=== PATIENT | female | born 1995 ===

== ENCOUNTER 2021-12-17 08:00 | Inpatient (IN) | payer BC ==
[~2021-12-17] VITALS: Ht 170.2 cm; Wt 108.6 kg
[2021-12-18] VITALS (16 sets, daily range): BP systolic 92–132; BP diastolic 53–84; PULSE 59–105; TEMP 98–99.1
[2021-12-18 06:11] LABS: BASO % 0.4 % (0.0-2.0); EOS # 0.1 K/mm3 (0.0-0.7); GRAN # 7.4 K/mm3 (1.4-6.5); GRAN % 71.2 % (42.2-75.2); HEMATOCRIT 39.3 % (37.0-47.0); HEMOGLOBIN 13.5 g/dl (12.5-16.0); LYMPH # 1.8 K/mm3 (1.2-3.4); LYMPH % 17.1 % (20.0-51.0); MEAN CELL VOLUME 87 fl (80.0-100.0); MEAN CORPUSCULAR HEMOGLOBIN 30 pg (27-31); MEAN CORPUSCULAR HGB CONC 34 g/dl (33.0-37.0); MEAN PLATELET VOLUME 12.2 fl (7.4-10.4); MONO # 0.9 K/mm3 (0.1-0.6); MONO % 8.9 % (1.7-9.3); PLATELET COUNT 206 K/mm3 (130-400); RED BLOOD COUNT 4.51 M/mm3 (4.10-5.30); REDCELL DISTRIBUTION WIDTH-CV 13.4 % (11.5-14.5)
--- NOTE | 2021-12-18 06:15 | NUR ---
This RN assumes care of patient. Plan of care discussed and patient prepped for csection. Questions answered.
[2021-12-18] MEDS ORDERED: PRENATAL TABLET PO (06:24)
--- NOTE | 2021-12-18 15:40 | NUR ---
Patient up to bathroom with standby assist. Dupree catheter removed and patient tolerates well. Pericare done, new gown/underwear/pad on. Patient ambulating room at this time.
--- NOTE | 2021-12-18 17:30 | NUR ---
Patient takes own tylenol at this time and this RN at bedside. 2-500mg tablets taken.
--- NOTE | 2021-12-18 18:30 | NUR ---
Report recieved. Up to restroom. Voided 200mls. Ambulated back to bed well.
[2021-12-19] VITALS: BP 132/83; PULSE 87; TEMP 98
[2021-12-19 04:40] VITALS: BP 121/74; PULSE 77; TEMP 97.9
--- NOTE | 2021-12-19 05:47 | NUR ---
Infant taken back to nursery per parent's request. Mom noted to be tearful. Mom stated she is very tired.
[2021-12-19 06:29] LABS: HEMOGLOBIN 11.8 g/dl (12.5-16.0)
[2021-12-19 06:33] LABS: HEMATOCRIT 36.5 % (37.0-47.0)
[2021-12-19] MEDS ORDERED: PERCOCET 325 MG1 TA2 PO (07:04)
[2021-12-19] MEDS ORDERED: IBU600 MG PO (07:04)
[2021-12-19 07:30] VITALS: BP 117/77; PULSE 81; TEMP 98.5
--- NOTE | 2021-12-19 10:24 | NUR ---
Initial visit; Parents resting, Manager Site left card of congratulations and information regarding the availability of spiritual care at our hospital.
[2021-12-19 16:30] VITALS: BP 114/71; PULSE 84; TEMP 98.5
[2021-12-19 20:05] VITALS: BP 119/73; PULSE 77; TEMP 98.2
--- NOTE | 2021-12-20 07:28 | NUR ---
PATIENT SLEEPING. REPORT RECEIVED FROM OFF GOING RNCORINNE. CARE TAKEN OVER BY THIS RN.
[2021-12-20 08:08] VITALS: BP 128/60; PULSE 75; TEMP 98.5
== END 2021-12-20 12:45 | disposition home or self-care (01) | DRG 788 ==
LOC: OB 12-18 05:32 → LDR 12-18 08:00 → OB 12-18 08:04
PROVIDERS: ADMIT Obstetrics & Gynecology
PROC: 10D00Z1 Extraction of Products of Conception, Low, Open Approach (ICD-10-PCS; principal; 2021-12-18)
DX: O32.1XX0 Maternal care for breech presentation, not applicable or unspecified (principal); Z37.0 Single live birth; O69.1XX0 Labor and delivery complicated by cord around neck, with compression, not applicable or unspecified; O99.344 Other mental disorders complicating childbirth; F32.A Depression, unspecified; Z3A.39 39 weeks gestation of pregnancy; Z23 Encounter for immunization
CPT/HCPCS: J0690; J1885; J2370; J2405; J2590; J7120